=== PATIENT | male | born 1975 | race Caucasian/White ===

== ENCOUNTER 2018-04-28 19:03 | Inpatient (IN) | payer SELFPAY ==
[~2018-04-28] VITALS: Ht 190.5 cm; Wt 101.3 kg
[2018-04-28] MEDS ORDERED: THIAMINE HCL 100 MG/ML 2ML VIAL ONE (20:06)
[2018-04-28] MEDS ORDERED: M.V.I. IV [ADULT] 10 ML VIAL IV ONE (20:07)
[2018-04-28] MEDS ORDERED: SODIUM CHLORIDE 0.9% 1000ML 2,000 ML IV ONE (20:07)
[2018-04-28] MEDS ORDERED: FOLIC ACID 5 MG/ML 10 ML VIAL ONE (20:08)
[2018-04-28 20:09] LABS: BASOPHILS % (AUTO) 1.2 % (0.0-5.0); EOSINOPHILS % (AUTO) 0.4 % (0.0-8.0); HEMATOCRIT 44.2 % (42-54); LYMPHOCYTES % (AUTO) 15.2 % (21.0-51.0); MEAN CORPUSCULAR HEMOGLOBIN 33.4 pg (27.0-33.0); MEAN CORPUSCULAR HGB CONC 34.6 g/dL (32.0-36.0); MEAN CORPUSCULAR VOLUME 96.8 fL (79-99); MONOCYTES % (AUTO) 5.8 % (3.0-13.0); NEUTROPHILS % (AUTO) 77.4 % (40.0-77.0); PLATELET COUNT (AUTO) 241 K/uL (130-400); RED BLOOD CELL COUNT(AUTO) 4.56 MIL/uL (4.50-6.20); RED CELL DISTRIBUTION WIDTH 12.5 % (11.0-15.5)
[2018-04-28 20:22] LABS: CREATININE 0.7 mg/dL (0.5-1.5); POTASSIUM 3.8 mmol/L (3.5-5.1)
[2018-04-28 20:29] LABS: ABG BASE EXCESS -4.4 mmol/L (-2.0-3.0); ABG HCO3 22.9 mmol/L (21.0-28.0); ABG OXYGEN SATURATION 92.6 % (95.0-99.0); ABG PCO2 51 mmHg (35-48)
[2018-04-28 20:31] LABS: ALBUMIN 3.3 g/dL (3.5-5.0); B-TYPE NATRIURETIC PEPTIDE < 5 pg/mL (0-100); BILIRUBIN,TOTAL 0.1 mg/dL (0.2-1.0); TOTAL PROTEIN, SERUM 6.9 g/dL (6.0-8.3)
[2018-04-28 20:32] LABS: CRP QUANTITATIVE 3.3 mg/L (0.00-9.0)
[2018-04-28 22:36] LABS: APPEARANCE,URINE Cloudy (CLEAR); BILIRUBIN,URINE Negative (NEGATIVE); COLOR,URINE Yellow (YELLOW); GLUCOSE, URINE (UA) Negative (NEGATIVE); KETONES,URINE Negative (NEGATIVE); LEUKOCYTE ESTERASE ,URINE Moderate (NEGATIVE); NITRATE,URINE Negative (NEGATIVE); OCCULT BLOOD,URINE Large (NEGATIVE); PROTEIN,URINE Negative (NEGATIVE); UROBILINOGEN,URINE 0.2 mg/dL (0.2-1.0)
[2018-04-28 22:51] LABS: BACTERIA,URINE Few /HPF (None Seen); MUCUS,URINE Few LPF (None Seen); SQUAMOUS EPITHELIAL CELL,UR 0-2 /HPF (0-2)
[2018-04-28 22:52] LABS: AMPHET/METH SCREEN,URINE NEGATIVE (NEGATIVE); BARBITURATE SCREEN, URINE NEGATIVE (NEGATIVE); BENZODIAZEPINES SCREEN,URINE NEGATIVE (NEGATIVE); CANNABINOID SCREEN,URINE NEGATIVE (NEGATIVE); COCAINE SCREEN,URINE NEGATIVE (NEGATIVE); OPIATE SCREEN,URINE NEGATIVE (NEGATIVE); PHENCYCLIDINE SCREEN,URINE NEGATIVE (NEGATIVE)
[2018-04-29] MEDS: SODIUM CHLORIDE 0.9% 1000ML 1,000 ML IV SCH ×4 (01:07→21:07)
[2018-04-29] MEDS: LEVOFLOXACIN 500 MG/D5W 100 ML 100 ML IV SCH (01:15)
[2018-04-29] MEDS ORDERED: SODIUM CHLORIDE 0.9% 1000ML 1,000 ML IV ONE (01:38)
[2018-04-29] MEDS ORDERED: LEVOFLOXACIN 500 MG/D5W 100 ML 100 ML ONE (01:38)
[2018-04-29 02:20] VITALS: BP_SYST 104; BP_SYST 157; BP_DIAS 58; BP_DIAS 82
[2018-04-29] MEDS ORDERED: LORAZEPAM 2 MG/ML 1 ML VIAL IVP ONE (03:15)
[2018-04-29] MEDS ORDERED: ACETAMINOPHEN 325 MG TAB ONE (03:56)
[2018-04-29 04:00] VITALS: BP 109/56
[2018-04-29] MEDS ORDERED: ACETAMINOPHEN 325 MG TAB PO PRN (04:00)
[2018-04-29] MEDS ORDERED: CHLORDIAZEPOXIDE HCL 25 MG CAP MODERATE PO PRN ×2 (05:30)
[2018-04-29] MEDS ORDERED: CHLORDIAZEPOXIDE HCL 25 MG CAP SEVERE PO PRN ×2 (05:30)
[2018-04-29] MEDS ORDERED: [UNRECOGNIZED DRUG - OTHER] IVP PRN ×2 (05:30)
[2018-04-29] MEDS ORDERED: LORAZEPAM 2 MG/ML IVP PRN ×4 (05:30)
[2018-04-29] MEDS ORDERED: [UNRECOGNIZED DRUG - OTHER] IVP PRN ×2 (05:30)
[2018-04-29 05:57] LABS: HEMATOCRIT 43.5 % (42-54); MEAN CORPUSCULAR HEMOGLOBIN 32.7 pg (27.0-33.0); MEAN CORPUSCULAR HGB CONC 33.4 g/dL (32.0-36.0); NUCLEATED RED BLOOD CELLS 0.1 % (0.0-0.19); PLATELET COUNT (AUTO) 205 K/uL (130-400); RED BLOOD CELL COUNT(AUTO) 4.43 MIL/uL (4.50-6.20); RED CELL DISTRIBUTION WIDTH 12.9 % (11.0-15.5); WHITE BLOOD COUNT (AUTO) 9.8 K/uL (4.8-10.8)
[2018-04-29 06:13] LABS: ALBUMIN 2.8 g/dL (3.5-5.0); BILIRUBIN,TOTAL 0.1 mg/dL (0.2-1.0); CREATININE 0.7 mg/dL (0.5-1.5); MAGNESIUM 1.9 mg/dL (1.80-2.40); PHOSPHORUS 2.8 mg/dL (2.5-4.9); POTASSIUM 3.7 mmol/L (3.5-5.1)
[2018-04-29 07:00] VITALS: BP 126/74
[2018-04-29] MEDS: PANTOPRAZOLE SODIUM 40 MG TABLET.DR PO SCH (08:38)
[2018-04-29] MEDS ORDERED: ENOXAPARIN SODIUM 40 MG/0.4 ML SYRINGE SQ SCH (09:00)
[2018-04-29] MEDS ORDERED: TRAMADOL HCL 50 MG TABLET PO PRN (09:45)
[2018-04-29] MEDS: M.V.I. IV [ADULT] 10 ML, FOLIC ACID 1 MG, THIAMINE HCL 100 MG in SODIUM CHLORIDE 0.9% 1... IV SCH (10:29)
[2018-04-29] MEDS: NEOMY SULF/BACITRA/POLYMYXIN B 1 EACH PACKET TP SCH ×2 (10:29→21:45)
[2018-04-29] MEDS ORDERED: FOLIC ACID 1 MG TABLET PO SCH (10:38)
[2018-04-29 11:00] VITALS: BP 129/69
[2018-04-29] MEDS: CHLORDIAZEPOXIDE HCL 25 MG CAP PO SCH ×2 (15:06→17:48)
[2018-04-29 16:00] VITALS: BP 120/70
[2018-04-29 20:00] VITALS: BP 126/74
[2018-04-30 00:08] VITALS: BP 116/58
[2018-04-30] MEDS: SODIUM CHLORIDE 0.9% 1000ML 1,000 ML IV SCH (00:38)
[2018-04-30] MEDS: LEVOFLOXACIN 500 MG/D5W 100 ML 100 ML IV SCH (00:38)
[2018-04-30] MEDS: CHLORDIAZEPOXIDE HCL 25 MG CAP PO SCH ×2 (00:38→05:08)
[2018-04-30 04:14] VITALS: BP 124/56
[2018-04-30 05:06] LABS: BASOPHILS % (AUTO) 0.5 % (0.0-5.0); EOSINOPHILS % (AUTO) 1.8 % (0.0-8.0); LYMPHOCYTES % (AUTO) 12.7 % (21.0-51.0); MEAN CORPUSCULAR HEMOGLOBIN 33.7 pg (27.0-33.0); MEAN CORPUSCULAR HGB CONC 34.5 g/dL (32.0-36.0); MEAN CORPUSCULAR VOLUME 97.6 fL (79-99); MONOCYTES % (AUTO) 9.1 % (3.0-13.0); NEUTROPHILS % (AUTO) 75.9 % (40.0-77.0); NUCLEATED RED BLOOD CELLS 0.1 % (0.0-0.19); PLATELET COUNT (AUTO) 189 K/uL (130-400); RED CELL DISTRIBUTION WIDTH 12.8 % (11.0-15.5); WHITE BLOOD COUNT (AUTO) 7.3 K/uL (4.8-10.8)
[2018-04-30 05:18] LABS: ALANINE AMINOTRANSFERASE 38 U/L (12-78); ALBUMIN 2.4 g/dL (3.5-5.0); ASPARTATE AMINOTRANSFERASE 23 U/L (10-37); BILIRUBIN,TOTAL 0.6 mg/dL (0.2-1.0); CARBON DIOXIDE 30 mmol/L (21-32); CHLORIDE 108 mmol/L (101-111); CREATININE 0.8 mg/dL (0.5-1.5); GLOMERULAR FILTR. RATE CALC 112 mL/min (>60); GLUCOSE,RANDOM 90 mg/dL (70-105); POTASSIUM 3.8 mmol/L (3.5-5.1); SODIUM SERUM 142 mmol/L (136-145); TOTAL PROTEIN, SERUM 5.4 g/dL (6.0-8.3); UREA NITROGEN, BLOOD 7 mg/dL (7-18)
[2018-04-30 05:20] LABS: ALCOHOL, BLOOD < 3 mg/dL (0-10)
[2018-04-30 07:00] VITALS: BP 137/90
[2018-04-30] MEDS: PANTOPRAZOLE SODIUM 40 MG TABLET.DR PO SCH (08:33)
[2018-04-30] MEDS: M.V.I. IV [ADULT] 10 ML, FOLIC ACID 1 MG, THIAMINE HCL 100 MG in SODIUM CHLORIDE 0.9% 1... IV SCH (08:33)
[2018-04-30] MEDS: NEOMY SULF/BACITRA/POLYMYXIN B 1 EACH PACKET TP SCH (08:34)
[2018-04-30] MEDS ORDERED: ENOXAPARIN SODIUM 30 MG/0.3 ML SQ SCH (09:00)
[2018-04-30] MEDS ORDERED: THIAMINE HCL 100 MG TABLET PO SCH (09:00)
[2018-04-30] MEDS ORDERED: LEVO500T2 PO (11:01)
== END 2018-04-30 11:21 | disposition home or self-care (01) | DRG 690 ==
LOC: EDH 19:03 → EDHIP 19:04 → 3BH 04-29 02:04
PROVIDERS: ADMIT Internal Medicine; ATTEND Internal Medicine
PROC: 3E0234Z Introduction of Serum, Toxoid and Vaccine into Muscle, Percutaneous Approach (ICD-10-PCS; principal; 2018-04-28)
PROC: 5A09357 Assistance with Respiratory Ventilation, Less than 24 Consecutive Hours, Continuous Positive Airway Pressure (ICD-10-PCS; 2018-04-28)
DX: N39.0 Urinary tract infection, site not specified (principal); E87.2 Acidosis; S00.81XA Abrasion of other part of head, initial encounter; F10.129 Alcohol abuse with intoxication, unspecified; W19.XXXA Unspecified fall, initial encounter; L98.9 Disorder of the skin and subcutaneous tissue, unspecified; X58.XXXA Exposure to other specified factors, initial encounter; Y93.89 Activity, other specified; Y92.89 Other specified places as the place of occurrence of the external cause; Y99.8 Other external cause status; Z23 Encounter for immunization; Z83.3 Family history of diabetes mellitus; Z80.1 Family history of malignant neoplasm of trachea, bronchus and lung; Z82.49 Family history of ischemic heart disease and other diseases of the circulatory system
CPT/HCPCS: 36415; 36600; 70450; 71046; 72040; 80053; 80305; 81001; 82803; 83690; 83735; 83874; 83880; 84100; 84484; 85025; 85027; 85651; 86140; 87088; 93005; 94660; G0008; G0480; J1650; J1956; J3411; J3490; J7030; Q2038